=== PATIENT | female | born 1980 | race Caucasian/White ===

== ENCOUNTER 2019-07-21 10:43 | Emergency (ER) | payer OTHER ==
[~2019-07-21] VITALS: Ht 157.5 cm; Wt 78.5 kg
[2019-07-21 11:14] LABS: URINE BILIRUBIN NEGATIVE (Negative); URINE BLOOD NEGATIVE (Negative); URINE CLARITY CLEAR; URINE COLOR STRAW; URINE GLUCOSE-RANDOM NEGATIVE (Negative); URINE KETONES NEGATIVE (Negative); URINE LEUKOCYTES-REFLEX NEGATIVE (Negative); URINE NITRITE-REFLEX NEGATIVE (Negative); URINE PROTEIN NEGATIVE (Negative); URINE SPECIFIC GRAVITY <= 1.005 (1.005-1.030); URINE UROBILINOGEN 0.2 E.U./dl (0.2-1.0)
[2019-07-21 11:17] LABS: ABSOLUTE BASOPHILS 0.1 thou/uL (0.0-0.2); ABSOLUTE EOSINOPHILS 0.2 thou/uL (0.0-0.7); ABSOLUTE LYMPHOCYTES 2.4 thou/uL (0.8-5.3); ABSOLUTE MONOCYTES 0.4 thou/uL (0.0-1.2); ABSOLUTE NEUTROPHILS 3.8 thou/uL (1.6-8.1); BASOPHILS 1.4 %; EOSINOPHILS 3.2 %; HEMATOCRIT 40.5 % (37.0-47.0); HEMOGLOBIN 13.7 gm/dL (12.0-15.0); LYMPHOCYTES 34.6 %; MCH 30.9 pg (26.0-34.0); MCHC 33.9 g/dL (28.0-37.0); MCV 91.3 fL (80.0-100.0); MONOCYTES 6.3 %; MPV 8.6 fl. (7.2-11.1); NUCLEATED RBCS 0 /100WBC; PLATELET COUNT* 291 thou/uL (150-400); POLYS 54.5 %; RBC 4.43 mil/uL (4.20-5.00); RDW-CV 12.8 % (10.5-14.5)
[2019-07-21 11:30] LABS: APTT 25.4 Seconds (25.0-31.3); CALCIUM 9.6 mg/dL (8.5-10.1); CREATININE 0.7 mg/dL (0.6-1.3)
[2019-07-21 11:40] LABS: ALBUMIN 4.1 g/dL (3.4-5.0); TOTAL PROTEIN 7.6 g/dL (6.4-8.2)
[2019-07-21 12:32] VITALS: BP 121/79
--- NOTE | 2019-07-23 11:02 | EKG ---
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
== END 2019-07-21 12:41 | disposition home or self-care (01) ==
LOC: M.ERS 10:43
PROVIDERS: Family Medicine
DX: R42 Dizziness and giddiness (principal); R11.2 Nausea with vomiting, unspecified; Z88.1 Allergy status to other antibiotic agents; Z88.0 Allergy status to penicillin; Z91.030 Bee allergy status

== ENCOUNTER 2019-07-22 18:15 | Inpatient (IN) | payer OTHER ==
[~2019-07-22] VITALS: Ht 157.5 cm; Wt 88.5 kg
[2019-07-22 18:25] VITALS: BP 126/76
[2019-07-22 18:46] LABS: ABSOLUTE BASOPHILS 0.1 thou/uL (0.0-0.2); ABSOLUTE EOSINOPHILS 0.2 thou/uL (0.0-0.7); ABSOLUTE LYMPHOCYTES 3.1 thou/uL (0.8-5.3); ABSOLUTE MONOCYTES 0.7 thou/uL (0.0-1.2); ABSOLUTE NEUTROPHILS 5.8 thou/uL (1.6-8.1); BASOPHILS 0.8 %; EOSINOPHILS 1.7 %; HEMATOCRIT 37.4 % (37.0-47.0); HEMOGLOBIN 12.6 gm/dL (12.0-15.0); LYMPHOCYTES 31.3 %; MCH 30.7 pg (26.0-34.0); MCHC 33.7 g/dL (28.0-37.0); MCV 91.1 fL (80.0-100.0); MONOCYTES 6.9 %; MPV 8.3 fl. (7.2-11.1); NUCLEATED RBCS 0 /100WBC; PLATELET COUNT* 277 thou/uL (150-400); POLYS 59.3 %; RBC 4.11 mil/uL (4.20-5.00); RDW-CV 12.7 % (10.5-14.5); WBC 9.8 thou/uL (4.0-11.0)
[2019-07-22 18:55] LABS: CALCIUM 8.9 mg/dL (8.5-10.1); CREATININE 0.7 mg/dL (0.6-1.3); POTASSIUM 3.6 mmol/L (3.5-5.1)
[2019-07-22 18:56] LABS: APTT 24.6 Seconds (25.0-31.3); PROTIME 9.9 Seconds (9.20-11.50)
[2019-07-22 19:06] LABS: ALBUMIN 3.5 g/dL (3.4-5.0); TOTAL BILIRUBIN 0.3 mg/dL (<0.1-1.0); TOTAL PROTEIN 6.6 g/dL (6.4-8.2)
[2019-07-22 20:14] VITALS: BP 121/75
[2019-07-22 20:15] VITALS: BP 112/67
[2019-07-23] VITALS: BP 106/63
--- NOTE | 2019-07-23 02:32 | NUR ---
PT ADMIT TO ROOM 220 AT 2010. ALERT ORIENTED TO SELF, PLACE, NOT TIME OR DATE. PT STATED SHE IS HAVING PROBLEMS THINKING ABOUT WHAT WORDS TO SAY. UP TO BR WITH ASSIST OF ONE. UNSTEADY GAIT. PT STATED SHE HAS A BRAND. DR RIVERS NOTIFIED AND ORDER FOR FIORCET OBTAINED. REPORTED PT HAVING PROBLEMS THINKING OF WORDS TO SAY AND NOT ORIENTED TO DATE. TELEMETRY SHOWS SR. PT ASKING FOR FOOD. LOOSE COUGH NOTED. PT STATES ITS PRODUCTIVE SWALLOWING. PT SAID THROAT SORE. HOUSE SUPP NOTIFIED FOR THROAT LOZENGES.
[2019-07-23 04:00] VITALS: BP 102/59
[2019-07-23 08:00] VITALS: BP 105/65
[2019-07-23 10:14] LABS: CHOLESTEROL 169 mg/dL (<200); HDL CHOLESTEROL 53 mg/dL (>40); LDL CHOLESTEROL 97 mg/dL (<100); TC:HDL 3.2 Ratio (Not establshd); TRIGLYCERIDE 96 mg/dL (<150); VLDL 19 mg/dL (<40)
[2019-07-23 10:18] LABS: SERUM ASSESSMENT Clear
--- NOTE | 2019-07-23 11:14 | EKG ---
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
[2019-07-23 11:30] VITALS: BP 107/61
--- NOTE | 2019-07-23 12:18 | NUR ---
Pt is A&O. Resides at home with her and 2 kids. 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 No DME. Hx of HH post back surgery. No hx of SNF. Goal is home at dc, no needs anticipated.
--- NOTE | 2019-07-23 13:29 | NUR ---
ASSUMED CARE OF PATIENT THIS AM AT 0730. PATIENT IS ALERT AND ORIENTED THIS AM. SHE C/O CONTINUED DIZZINESS TODAY. SHE ALSO C/O SOME NAUSEA. PATIENT ABLE TO TAKE HER DIET WELL. PATIENT HAS BEEN UP TO VOID. NOT ABLE TO OBTAIN URINE SPECIMEN SO FAR TODAY. PATIENT TAKEN TO RADIOLOGY FOR MRI PER W/C. PT IN TO EVALUATE PATIENT. PATIENT GAIT UNSTEADY WITH OBSERVATION. VSS. IS IN AT THE BEDSIDE. PATIENT MEDICATED FOR C/O A BRAND WITH ONLY PARTIAL RELIEF. WILL CONTINUE TO MONITOR. PATIENT SAFETY MEASURES IN PLACE.
[2019-07-23 15:03] LABS: URINE BILIRUBIN NEGATIVE (Negative); URINE BLOOD NEGATIVE (Negative); URINE CLARITY CLEAR; URINE COLOR YELLOW; URINE GLUCOSE-RANDOM NEGATIVE (Negative); URINE KETONES NEGATIVE (Negative); URINE LEUKOCYTES-REFLEX NEGATIVE (Negative); URINE NITRITE-REFLEX NEGATIVE (Negative); URINE PROTEIN NEGATIVE (Negative); URINE SPECIFIC GRAVITY <= 1.005 (1.005-1.030); URINE UROBILINOGEN 0.2 E.U./dl (0.2-1.0)
[2019-07-23 16:17] VITALS: BP 111/65
[2019-07-23 20:00] VITALS: BP 111/57
[2019-07-24 00:48] VITALS: BP 129/75
--- NOTE | 2019-07-24 02:40 | NUR ---
PT ALERT ORIENTED. TINGLING IN LOWER EXTREMITIES AND R ARM. PT CO HEAD ACHE. NAPROXIN GIVEN. PT CALLED OUT FOR NURSE AT APPROX 0230. SAYING I DON'T FEEL GOOD. RAPIDLY TALKING IN A ANXIOUS, PANICKY MANNOR. DIPHENHYDRAMINE GIVEN FOR ANXIETY. PT ALSO SAID SHE WAS HOT AND COLD AND FELT NAUSIATED. COOL WASH CLOTH GIVEN AND BATH BASIN TO CATCH EMESIS IF SHE VOMITS. PT'S FRIEND WAS IN EARLIER AND BROUGHT FOOD FOR PT WHICH SHE ATE. TELEMETRY SHOWS SR. CALLING OUT FOR ASSIST WITH AMBULATING. UNSTEADY GAIT.
[2019-07-24 04:00] VITALS: BP 123/58
[2019-07-24 08:00] VITALS: BP 109/64
[2019-07-24 11:48] VITALS: BP 102/56
--- NOTE | 2019-07-24 15:25 | NUR ---
REPORT GIVEN TO CORNEL ON JSSI. PT TAKEN TO ROOM 114 VIA BED
[2019-07-24 16:00] VITALS: BP 107/52
--- NOTE | 2019-07-24 17:28 | NUR ---
PATIENT ARRIVED TO UNIT AT APPROX 1530. ALERT AND OREINTED X4. VSS ON ROOM AIR. NO COMPLAINTS VOICED TO THIS NURSE. PATIENT IN BED AND ASSISTED TO THE BATHROOM BY STAFF NEEDED. AT BEDSIDE. FALL PRECAUTIONS IN PLACE. CALL LIGHT WITHIN REACH. HOURLY ROUNDS. NURSING WILL CONTINUE TO MONITOR.
[2019-07-24 21:40] VITALS: BP 118/70
--- NOTE | 2019-07-25 07:27 | NUR ---
PATIENT HAS SLEPT WELL THROUGHOUT MOST OF THE NIGHT. VSS ON RA. NO C/O PAIN. PATIENT STILL HAS C/O OF SLIGHT DIZZINESS. PATIENT IS UP WITH ASSIST X 1 TO THE BATHROOM. IV IN LEFT AC-SL. PATIENT INSTRUCTED TO USE CALL LIGHT WHEN NEEDING ASSISTANCE. HOURLY ROUNDS MADE. WILL CONTINUE WITH PLAN OF CARE AND NURSING TO MONITOR.
[2019-07-25 08:00] VITALS: BP 116/71
[2019-07-25] MEDS ORDERED: ACYCLOVIR 400400 MG PO (08:37)
[2019-07-25] MEDS ORDERED: MEDROLDOSEPACK PO (08:37)
[2019-07-25] MEDS ORDERED: ANTIVERT25 MG PO (08:37)
[2019-07-25] MEDS ORDERED: ZOFRAN ODT4 MG DISSOLVE (11:25)
[2019-07-25 12:04] VITALS: BP 116/71
[2019-07-25 12:37] VITALS: BP 116/71
--- NOTE | 2019-07-28 19:25 | EEG ---
[address] [address] EEG STUDY REPORT Name: JONNATHAN BUCIO SKY Room: [address] IN M.R.#: [id number] Admission: 07/22/19 Attend Phys: Miguel Holbrook Discharge: 07/25/19 Date of : 78 Report #: [id number] THIS REPORT FOR: //name// CC: Miguel Lucia DATE OF SERVICE: 07/23/2019 This patient is being evaluated for multiple symptoms like headache, visual disturbances, dizziness, loss of position sense altogether in the lower extremities. EEG was done by placing the electrodes by standard 10/20 system of electrode placement. Both referential and sequential montages were used for recording. Background activity in this patient's EEG is about 10 Hz and 30 microvolt. It is a pretty well-formed activities when the patient is awake. The patient repeatedly goes to sleep and that was associated with bilaterally symmetrical sleep spindle and vertex sharp waves. Photic stimulation was unremarkable. Throughout the record, no active epileptiform activity was noticed. IMPRESSION: This patient's EEG is unremarkable and does not show any definite abnormality. <ELECTRONICALLY SIGNED> By: Derrell Fleming MD 07/28/19 1925 [id number] 1729Derrell Fleming MD /nt
--- NOTE | 2019-07-28 19:25 | CON ---
[address] [address] CONSULTATION Name: JONNATHAN BUCIO SKY Room: [address] IN M.R.#: [id number] Admission: 07/22/19 Attend Phys: Miguel Holbrook Discharge: 07/25/19 Date of : 78 Report #: [id number] THIS REPORT FOR: //name// CC: Miguel Lucia DATE OF SERVICE: 07/23/2019 HISTORY OF PRESENT ILLNESS: This is a 39-year-old female patient who was seen by me for dizziness. The patient has multiple unstructured symptoms. She said she is dizzy. She indicates she has trouble getting the words out. She indicates she has difficulty with ambulation. She is afebrile. This started spontaneously without any trauma. She was given some steroids in the Emergency Room and here and she does not believe her symptoms are any different than before. She does not know any aggravating or relieving factors for this. She did receive some meclizine and IV fluids and that did not produce any beneficial effects. REVIEW OF SYSTEMS: Indicate the patient says that she never had this kind of symptom before. She does have some tinnitus. She does not drink any alcohol. She has ovarian cyst and back surgeries in the past. She does have a history of headache and migraine. She indicates she is under stress, but she does not believe that her symptoms are because of stress. Otherwise, 14-point review of system was carried out and was noncontributory. PAST MEDICAL HISTORY: Positive for migraine. FAMILY HISTORY: Unremarkable. SOCIAL HISTORY: She smokes. She drinks alcohol very occasionally. PHYSICAL EXAMINATION: Indicate she is alert, responsive, talks very slowly, but is able to talk. Cranial nerve examination indicates she presents with somewhat unusual visual deficit. She moves all 4 extremities, but slowly. She indicates she does not have any position sense. Reflexes are somewhat diminished. When I asked her to do a [id number], she does attend a very odd fashion. Cardiac and respiratory examination is unremarkable. Blood pressure is 107/61, pulse is 67, temperature is 98. LABORATORY DATA: Indicate a white count of 9.8. TSH and vitamin B12 was unremarkable. She had a CT and MRI of the brain and they were both unremarkable. IMPRESSION: Pretty unusual history. It is difficult to put these symptoms in any organic diagnosis. I will get an EEG done. Since the MRI is negative, we may consider doing a sedimentation rate and MRA to [place] [address] CONSULTATION Name: JONNATHAN BUCIO SKY Room: [address] IN M.R.#: [id number] Admission: 07/22/19 Attend Phys: Miguel Holbrook Discharge: 07/25/19 Date of : 78 Report #: [id number] not think there is any indication to do the spinal tap in this patient, but we will keep that in mind. Although she denies any stress related problems, but that possibility need to be kept in mind. Thank you very much for this referral. <ELECTRONICALLY SIGNED> By: Derrell Fleming MD 07/28/19 1925 1348 1536Derrell Fleming MD /nt
== END 2019-07-25 14:19 | disposition home or self-care (01) | DRG 918 ==
LOC: M.ERS 18:15 → M.TBA-ER 18:54 → M.ORTHSURG 18:54 → M.2W 18:54 → M.ORTHSURG 07-24 15:11
PROVIDERS: Family Medicine; Internal Medicine; ADMIT Family Medicine
DX: T50.991A Poisoning by other drugs, medicaments and biological substances, accidental (unintentional), initial encounter (principal); M19.90 Unspecified osteoarthritis, unspecified site; G43.909 Migraine, unspecified, not intractable, without status migrainosus; F17.210 Nicotine dependence, cigarettes, uncomplicated; R27.0 Ataxia, unspecified; E66.9 Obesity, unspecified; H93.11 Tinnitus, right ear; Y92.89 Other specified places as the place of occurrence of the external cause; Z90.49 Acquired absence of other specified parts of digestive tract; Z88.1 Allergy status to other antibiotic agents; Z88.0 Allergy status to penicillin; Z91.030 Bee allergy status; Z68.35 Body mass index [BMI] 35.0-35.9, adult; Z23 Encounter for immunization